=== PATIENT | male | born 1985 | race African-American/Black ===

== ENCOUNTER 2016-12-07 00:50 | Emergency (ER) | payer MEDICAID | END 2016-12-07 01:54 | disposition home or self-care (01) | LOC: D.ER 00:50 | DX: G43.909 Migraine, unspecified, not intractable, without status migrainosus (principal); I10 Essential (primary) hypertension; E11.9 Type 2 diabetes mellitus without complications; Z79.4 Long term (current) use of insulin ==

== ENCOUNTER → 2016-12-13 20:51 | Emergency (ER) | payer MEDICARE, MEDICAID | END | disposition home or self-care (01) | LOC: D.ER 20:51 | DX: G43.909 Migraine, unspecified, not intractable, without status migrainosus (principal); I10 Essential (primary) hypertension; E11.9 Type 2 diabetes mellitus without complications; F17.200 Nicotine dependence, unspecified, uncomplicated ==

== ENCOUNTER 2017-01-07 19:33 | Emergency (ER) | payer MEDICARE | END 2017-01-07 22:31 | disposition home or self-care (01) | LOC: D.ER 19:33 | DX: G43.909 Migraine, unspecified, not intractable, without status migrainosus (principal); I10 Essential (primary) hypertension; E11.9 Type 2 diabetes mellitus without complications; F17.200 Nicotine dependence, unspecified, uncomplicated ==